=== PATIENT | female | born 1985 | race Caucasian/White ===

== ENCOUNTER → 2020-04-28 | Outpatient (CLI) | payer BC ==
[2020-04-28 09:55] VITALS: BP 130/89; PULSE 95; RESP 18; TEMP 98.3
--- NOTE | 2020-04-28 11:03 | P.HPOB ---
History of Present Illness H&P Date: 04/28/20 Chief Complaint: The patient is here for her routine gynecologic exam. This is a 35-year-old with an LMP of 04/18/2020. She is here to establish with this office. It has been about 3 years since her last pelvic exam. She has used withdrawal for control. She states she noticed a dark area just inside of the vaginal opening last week. It is in the midline at the posterior aspect of the outer vagina. She denies any pain or discomfort with sexual intercourse. She would like to have this checked out and states she does not have any pain or discomfort related to this. She is otherwise without complaints. She has completed her childbearing and would like her to get a vasectomy. Review of Systems The patient has gained 10 pounds over the last year. She attributes this to decreased activity during the Covid pandemic. She denies respiratory, cardiac, or G.I. problems. 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 History of Any Multi-Drug Resistant Organisms: None Reported Past Surgical History: No Surgical Hx Reported Past Psychological History: No Psychological Hx Reported Smoking Status: Never smoker Past Alcohol Use History: None Reported Past Drug Use History: None Reported Additional History: She has been since 2003. She is currently not work ing outside of the home. - Past Family History Father Family Medical History: No Reported History Mother Family Medical History: No Reported History Medications and Allergies Home Medications Medication Instructions Recorded Confirmed Type No Known Home Medications 05/26/14 04/28/20 History Allergies Allergy/AdvReac Type Severity Reaction Status Date / Time No Known Allergies Allergy Verified 04/28/20 09:52 Exam Vital Signs Temp Pulse Resp BP Pulse Ox 04/28/20 09:53 98.3 F 95 18 130/89 96 Intake and Output 04/27/20 04/28/20 04/28/20 22:59 06:59 14:59 Other: Weight 61.235 kg Height 5 feet 4 inches, weight 135 pounds, BMI 23.2. This is a well-developed well-nourished white female who is alert and oriented times 3 in no acute distress. HEENT: Within normal limits. NECK: Supple without mass or thyromegaly. CHEST AND LUNGS: Clear to auscultation. HEART: Regular rate and rhythm. BREASTS: Are without mass or discharge. AXILLARY EXAM: Negative for adenopathy. BACK: Negative for CVA tenderness. ABDOMEN: Soft, nontender, without palpable masses. PELVIC EXAM: Normal external genitalia. Cervix appears normal. There is a pigmented area at the posterior aspect of the vagina near the introitus that is irregular in shape measuring approximately 1 x 1 cm. The lesion is flat and nontender. There are no other vaginal lesions noted. There is no unusual discharge. There is no evidence of prolapse. The uterus is midposition, nongravid size and nontender. There are no palpable adnexal masses or tenderness. RECTAL EXAM: negative for mass or tenderness. EXTREMITIES: Nontender. IMPRESSION: 1. 35-year-old female using withdrawal for control with a pigmented vaginal lesion at the posterior outer vagina near the introitus. The lesion is irregular in shape and measures approximately 1 x 1 cm. The patient noticed this last week and was an incidental finding. She is uncertain as to how long it has been there. 2. The patient has been using withdrawal for control. She would like her to get a vasectomy. PLAN: 1. Pap smear was performed. 2. Self breast awareness was discussed with the patient. 3. I have recommended biopsy of the vaginal lesion and we will schedule her for this procedure. She understands that this will be done to rule out malignant or premalignant lesions. She understands that complete excision may be necessary inserted situations. 4. She has the number for [facility] and will look into having her get a vasectomy. 5. After the vaginal lesion biopsy, she will return in one year or as needed.
== END | disposition home or self-care (01) ==
LOC: WWCWWP 09:34
PROVIDERS: ATTEND Obstetrics & Gynecology
DX: Z53.9 Procedure and treatment not carried out, unspecified reason (principal)

== ENCOUNTER → 2020-05-06 | Day surgery (SDC) | payer BC ==
[2020-05-06 12:06] VITALS: BP 132/82; PULSE 95; RESP 18; TEMP 98.8
--- NOTE | 2020-05-06 13:13 | P.PCN ---
Date of Procedure: 05/06/20 Preoperative Diagnosis: Pigmented vaginal lesion Postoperative Diagnosis: Same Procedure(s) Performed: Vaginal lesion biopsy Anesthesia: local Surgeon: David Stewart Estimated Blood Loss (ml): 0 Pathology: other (Vaginal lesion biopsy) Condition: stable Disposition: same day Indications for Procedure: This was a 35-year-old female who was found to have a pigmented vaginal lesion in the posterior outer vagina. Because of the uncertain nature of the lesion, the lesion was biopsied. Operative Findings: The vaginal lesion was in the outer third of the vagina in the midline at the posterior aspect of the vagina. The lesion measured approximately 1 x 1 cm and was irregularly shaped. The lesion is flat and nontender. Description of Procedure: The procedure was described to the patient and we have discussed possible risks including bleeding and infection. All of her questions were answered. The patient was placed in the lithotomy position and the area was prepped with Betadine solution. Approximately 1.5 mL of 1% lidocaine was used for local anesthesia. Following determination of adequate anesthesia, a large cervical biopsy instrument was used to biopsy the pigmented mucosa. The majority of the 1 x 1 cm lesion was removed and sent for pathological examination. There was minimal bleeding at the site and this was made hemostatic with a silver nitrate stick. A small amount of antibiotic ointment was applied to the surface of the site and a piece of gauze was placed between the external labia. The patient tolerated the procedure well. Preprocedure vital signs were: Blood pressure 132/82, height 64 inches, weight 135 pounds, temperature 98.8, pulse 95 and pulse oximeter 96%. Postprocedure blood pressure was 128/92, pulse 90 and pulse oximeter 97%. The patient was instructed to call if she is having unusual pain, heavier bleeding, fever or problems. The patient was asked to avoid running and all sexual activity for 7 days. She was instructed not to insert anything into the vagina. She was discharged home in stable condition.
--- NOTE | 2020-05-12 12:27 | P.PN ---
Progress Note - Text Progress Note Date: 05/12/20 OUTPATIENT FOLLOW-UP NOTE TEST(S)/RESULTS: Vaginal biopsy from 05/06/20 was benign showing post inflammatory pigment incontinence. Also Pap smear done on 04/28/2020 showed ASCUS with negative high-risk HPV testing. METHOD OF NOTIFICATION: She was notified by phone PATIENT COMMENTS: She denies any problems after the biopsy. DIAGNOSIS: ASCUS Pap smear with negative high-risk HPV testing and benign vaginal biopsy. DISCUSSION: We had a long discussion regarding the abnormal Pap smear which showed ASCUS and negative high-risk HPV testing. She understands no further testing is necessary at this time. We will plan on repeating both the cytology Pap smear and HPV testing in 2-3 years. She will still return for her annual well woman exam in 1 year. PLAN: As above
== END ==
LOC: WWCWWP 11:47
PROVIDERS: ATTEND Obstetrics & Gynecology
DX: N89.8 Other specified noninflammatory disorders of vagina (principal)
CPT/HCPCS: 88305

== ENCOUNTER 2021-08-08 18:21 | Observation (INO) | payer BC ==
[2021-08-08] MEDS ORDERED: SODIUM CHLORIDE 0.9% 1,000 ML IV STA (18:41)
[2021-08-08] MEDS ORDERED: ONDANSETRON 4 MG/2 ML VIAL IVP STA (18:41)
[2021-08-08] MEDS ORDERED: diphenhydrAMINE 50 MG/ML 1 ML VIAL IVP STA (18:41)
[2021-08-08] MEDS ORDERED: FAMOTIDINE 20 MG/2 ML VIAL IV STA (18:42)
--- NOTE | 2021-08-08 19:33 | ED ---
General Adult HPI - General Chief complaint: Nausea/Vomiting/Diarrhea Stated complaint: fever, vomiting, body aches Time Seen by Provider: 08/08/21 18:36 Source: patient, RN notes reviewed, old records reviewed Mode of arrival: wheelchair Limitations: no limitations - History of Present Illness Initial comments: Patient is a 36-year-old female who took a home Covid 19 test last Monday and it was found to be positive. Last week she has been having nausea, vomiting, intermittent abdominal discomfort. She denies any diarrhea. Does endorse by mouth intake, however states it is somewhat reduced due to possible appetite. Denies shortness of breath but does endorse a mild cough. Has no medical problems. Patient is not obese and BMI is normal. She denies any fevers or chills. She states she has generalized joint pain and feels "miserable". She is concerned as she does not feel any better and would like to be evaluated. Patient was not vaccinated for COVID-19. - Related Data Home Medications Medication Instructions Recorded Confirmed No Known Home Medications 05/26/14 08/08/21 Allergies Allergy/AdvReac Type Severity Reaction Status Date / Time No Known Allergies Allergy Verified 08/08/21 19:30 Review of Systems ROS Statement: Those systems with pertinent positive or pertinent negative responses have been documented in the HPI. Review of Systems: CONST: Denies fever EYES: Denies blurry vision ENT: Endorses nasal congestion C/V: Denies Chest pain RESP: Denies shortness of breath GI: Endorses nonspecific abdominal discomfort : Denies dysuria SKIN: Denies rash. MSK: Endorses generalized joint pain NEURO: Denies headache ROS Other: All systems not noted in ROS Statement are negative. 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 History of Any Multi-Drug Resistant Organisms: None Reported Past Surgical History: No Surgical Hx Reported Past Psychological History: No Psychological Hx Reported Smoking Status: Never smoker Past Alcohol Use History: None Reported Past Drug Use History: None Reported - Past Family History Father Family Medical History: No Reported History Mother Family Medical History: No Reported History General Exam - General Exam Comments Initial Comments: General: Appears ill but nontoxic and in no acute distress. HEAD: Normal with no signs of head trauma. EYES: PERRLA, EOMI, conjunctiva normal, no discharge. ENT: Hearing grossly intact, normal oropharynx. Mucous membranes appear mildly dry. RESPIRATORY: Clear breath sounds bilaterally. No wheezes, rales, or rhonchi. No increased work of breathing. No hypoxia. C/V: Regular rate and rhythm. S1 and S2 auscultated, no edema, peripheral pulses 2+ and intact throughout ABD: Abd is soft, nontender, nondistended. No guarding. No peritoneal signs. No rebound tenderness. EXT: Normal range of motion, no obvious deformity SKIN: No rashes or lesions observed on exposed skin. NEURO: Alert and oriented 4. Limitations: no limitations Course Vital Signs 08/08/21 08/08/21 18:28 21:14 Temperature 98.6 F 97.8 F Pulse Rate 107 H 89 Respiratory 18 20 Rate Blood Pressure 96/65 92/53 O2 Sat by Pulse 97 97 Oximetry Medical Decision Making - Medical Decision Making Based on the patient's presentation and physical exam, I'm concerned for dehyd ration in the setting of acute COVID-19 infection. We will obtain basic laboratory studies as well as retest for COVID-19. She does not meet criteria for monoclonal antibody therapy. I did discuss this with her, and she has no medical issues, has a normal BMI, and is middle-aged an otherwise healthy. She expressed understanding. We will administer IV Zofran, Benadryl, Pepcid as well as 1 L fluid bolus. She was in agreement with this plan.Patient otherwise appears within normal limits and is not in any form of respiratory distress. Patient's chest x-ray reveals bilateral interstitial patchy pneumonia likely secondary to her COVID-19 positivity. COVID-19 test is positive. Basic labora tory studies were remarkable for mild hyponatremia and hypochloremia of 130 and 93 respectively. Patient has an AK I with an elevated BUNs of 34 and creatinine of 1.8. Patient is a mildly elevated AST and ALT of 167 and 76 respectively. Remainder the laboratory studies are unremarkable. Urinalysis maybe contaminated, which is no obvious signs of infection at this time. Accepted the patient due to her SHARMIN as well as dehydration like to admit her for IV fluids. She does not meet criteria for monoclonal antibody treatment for COVID-19 infection. She was in agreement with this plan. She'll be started on maintenance fluids. I spoke with the admitting team under Dr. Hart who accepted the patient. Consult will be placed to infectious disease Dr. Chen to be evaluated in the morning, in the event that he can offer the patient additional COVID-19 therapies. Patient was in agreement this plan. Patient was therefore admitted to observation for her acute kidney injury and dehydration likely secondary to her COVID-19 infection. - Lab Data Result diagrams: 08/08/21 19:56 08/08/21 19:56 Lab Results 08/08/21 08/08/21 08/08/21 Range/Units 18:34 19:56 19:56 WBC 6.0 (3.8-10.6) k/uL RBC 4.84 (3.80-5.40) m/uL Hgb 13.6 (11.4-16.0) gm/dL Hct 39.5 (34.0-46.0) % MCV 81.6 (80.0-100.0) fL MCH 28.2 (25.0-35.0) pg MCHC 34.5 (31.0-37.0) g/dL RDW 13.6 (11.5-15.5) % Plt Count 140 L (150-450) k/uL MPV 9.5 Neutrophils % 87 % Lymphocytes % 8 % Monocytes % 3 % Eosinophils % 0 % Basophils % 0 % Neutrophils # 5.3 (1.3-7.7) k/uL Lymphocytes # 0.5 L (1.0-4.8) k/uL Monocytes # 0.2 (0-1.0) k/uL Eosinophils # 0.0 (0-0.7) k/uL Basophils # 0.0 (0-0.2) k/uL Sodium (137-145) mmol/L Potassium (3.5-5.1) mmol/L Chloride (98-107) mmol/L Carbon Dioxide (22-30) mmol/L Anion Gap mmol/L BUN (7-17) mg/dL Creatinine (0.52-1.04) mg/dL Est GFR (CKD-EPI)AfAm (>60 ml/min/1.73 sqM) Est GFR (CKD-EPI)NonAf (>60 ml/min/1.73 sqM) Glucose (74-99) mg/dL Calcium (8.4-10.2) mg/dL Total Bilirubin (0.2-1.3) mg/dL AST (14-36) U/L ALT (4-34) U/L Alkaline Phosphatase (38-126) U/L Total Protein (6.3-8.2) g/dL Albumin (3.5-5.0) g/dL Amylase (30-110) U/L Lipase (23-300) U/L Urine Color Yellow Urine Appearance Cloudy H (Clear) Urine pH 5.5 (5.0-8.0) Ur Specific [place] 1.015 (1.001-1.035) Urine Protein 1+ H (Negative) Urine Glucose (UA) Negative (Negative) Urine Ketones Negative (Negative) Urine Blood Large H (Negative) Urine Nitrite Negative (Negative) Urine Bilirubin Negative (Negative) Urine Urobilinogen <2.0 (<2.0) mg/dL Ur Leukocyte Esterase Negative (Negative) Urine RBC 34 H (0-5) /hpf Urine WBC 83 H (0-5) /hpf Urine WBC Clumps Moderate H (None) /hpf Ur Squamous Epith Cells 4 (0-4) /hpf Amorphous Sediment Moderate H (None) /hpf Urine Bacteria Few H (None) /hpf Hyaline Casts 117 H (0-2) /lpf Urine Mucus Rare H (None) /hpf Coronavirus (PCR) Detected A (Not Detectd) 08/08/21 Range/Units 19:56 WBC (3.8-10.6) k/uL RBC (3.80-5.40) m/uL Hgb (11.4-16.0) gm/dL Hct (34.0-46.0) % MCV (80.0-100.0) fL MCH (25.0-35.0) pg MCHC (31.0-37.0) g/dL RDW (11.5-15.5) % Plt Count (150-450) k/uL MPV Neutrophils % % Lymphocytes % % Monocytes % % Eosinophils % % Basophils % % Neutrophils # (1.3-7.7) k/uL Lymphocytes # (1.0-4.8) k/uL Monocytes # (0-1.0) k/uL Eosinophils # (0-0.7) k/uL Basophils # (0-0.2) k/uL Sodium 132 L (137-145) mmol/L Potassium 3.6 (3.5-5.1) mmol/L Chloride 93 L (98-107) mmol/L Carbon Dioxide 25 (22-30) mmol/L Anion Gap 14 mmol/L BUN 34 H (7-17) mg/dL Creatinine 1.80 H (0.52-1.04) mg/dL Est GFR (CKD-EPI)AfAm 41 (>60 ml/min/1.73 sqM) Est GFR (CKD-EPI)NonAf 35 (>60 ml/min/1.73 sqM) Glucose 101 H (74-99) mg/dL Calcium 8.5 (8.4-10.2) mg/dL Total Bilirubin 0.5 (0.2-1.3) mg/dL AST 167 H (14-36) U/L ALT 76 H (4-34) U/L Alkaline Phosphatase 73 (38-126) U/L Total Protein 6.8 (6.3-8.2) g/dL Albumin 3.4 L (3.5-5.0) g/dL Amylase 77 (30-110) U/L Lipase 196 (23-300) U/L Urine Color Urine Appearance (Clear) Urine pH (5.0-8.0) Ur Specific [place] (1.001-1.035) Urine Protein (Negative) Urine Glucose (UA) (Negative) Urine Ketones (Negative) Urine Blood (Negative) Urine Nitrite (Negative) Urine Bilirubin (Negative) Urine Urobilinogen (<2.0) mg/dL Ur Leukocyte Esterase (Negative) Urine RBC (0-5) /hpf Urine WBC (0-5) /hpf Urine WBC Clumps (None) /hpf Ur Squamous Epith Cells (0-4) /hpf Amorphous Sediment (None) /hpf Urine Bacteria (None) /hpf Hyaline Casts (0-2) /lpf Urine Mucus (None) /hpf Coronavirus (PCR) (Not Detectd) Disposition Clinical Impression: SHARMIN (acute kidney injury), Dehydration, COVID-19 virus infection Disposition: ADMITTED IP TO THIS [facility] Condition: Serious
--- NOTE | 2021-08-08 19:53 | XR ---
EXAMINATION TYPE: XR chest 1V portable DATE OF EXAM: 08/08/2021 COMPARISON: 05/26/2014 HISTORY: Vomiting TECHNIQUE: Single view FINDINGS: There is some patchy interstitial infiltrates in both lungs. Heart size is normal. There ar e no hilar masses. Costophrenic angles are clear. Bony thorax is intact. IMPRESSION: Interstitial patchy pneumonia. Normal heart. Abnormality appears new compared to old exam .
[2021-08-08] MEDS: SODIUM CHLORIDE 0.9% 1,000 ML IV ONE ×2 (20:16→21:11)
[2021-08-08 20:23] LABS: Basophils % (A) 0 %; Eosinophils % (A) 0 %; HCT 39.5 % (34.0-46.0); HGB 13.6 gm/dL (11.4-16.0); Lymphocytes # (A) 0.5 k/uL (1.0-4.8); Lymphocytes % (A) 8 %; MCH 28.2 pg (25.0-35.0); MCHC 34.5 g/dL (31.0-37.0); MCV 81.6 fL (80.0-100.0); Mean Platelet Volume 9.5; Monocytes # (A) 0.2 k/uL (0-1.0); Monocytes % (A) 3 %; Neutrophils # (A) 5.3 k/uL (1.3-7.7); Neutrophils % (A) 87 %; Platelet Count 140 k/uL (150-450); RBC 4.84 m/uL (3.80-5.40); RDW 13.6 % (11.5-15.5)
[2021-08-08 20:35] LABS: ALT 76 U/L (4-34); AST 167 U/L (14-36); African American GFR (CKD) 41 (>60 ml/min/1.73 sqM); Albumin 3.4 g/dL (3.5-5.0); Alkaline Phosphatase 73 U/L (38-126); Amylase 77 U/L (30-110); Anion Gap 14 mmol/L; Blood Urea Nitrogen 34 mg/dL (7-17); Calcium 8.5 mg/dL (8.4-10.2); Carbon Dioxide 25 mmol/L (22-30); Chloride 93 mmol/L (98-107); Glucose 101 mg/dL (74-99); Lipase 196 U/L (23-300); Non-African American GFR(CKD) 35 (>60 ml/min/1.73 sqM); Sodium 132 mmol/L (137-145); Total Bilirubin 0.5 mg/dL (0.2-1.3); Total Protein 6.8 g/dL (6.3-8.2)
[2021-08-08 20:37] LABS: Potassium 3.6 mmol/L (3.5-5.1)
[2021-08-08 20:53] LABS: Amorphous Sediment,Urine Moderate /hpf; Appearance,Urine Cloudy (Clear); Bacteria,Urine Few /hpf; Bilirubin,Urine Negative (Negative); Blood,Urine Large (Negative); Color,Urine Yellow; Glucose,Urine (UA) Negative (Negative); Hyaline Casts,Urine 117 /lpf (0-2); Ketones,Urine Negative (Negative); Leukocyte Esterase,Urine Negative (Negative); Mucus,Urine Rare /hpf; Nitrite,Urine Negative (Negative); PH, Urine 5.5 (5.0-8.0); Protein,Urine 1+ (Negative); RBC,Urine 34 /hpf (0-5); Specific Gravity,Urine 1.015 (1.001-1.035); Squamous Epithelial Cell,Urine 4 /hpf (0-4); Urobilinogen,Urine <2.0 mg/dL (<2.0); WBC,Urine 83 /hpf (0-5)
[2021-08-08] MEDS ORDERED: ACETAMINOPHEN TAB 325 MG TAB PO PRN (20:58)
[2021-08-08] MEDS: SODIUM CHLORIDE 0.9% 1,000 ML IV SCH (21:12)
[2021-08-08 22:11] LABS: HCG,Qualitative Serum Not Detected
[2021-08-08] MEDS: ONDANSETRON 4 MG/2 ML VIAL IVP PRN (23:45)
[2021-08-09 05:20] LABS: Basophils % (A) 0 %; Eosinophils % (A) 0 %; HCT 35.8 % (34.0-46.0); HGB 12.3 gm/dL (11.4-16.0); Lymphocytes # (A) 0.5 k/uL (1.0-4.8); Lymphocytes % (A) 9 %; MCH 28.3 pg (25.0-35.0); MCHC 34.5 g/dL (31.0-37.0); MCV 82.2 fL (80.0-100.0); Mean Platelet Volume 9.6; Monocytes # (A) 0.2 k/uL (0-1.0); Monocytes % (A) 3 %; Neutrophils # (A) 4.7 k/uL (1.3-7.7); Neutrophils % (A) 86 %; Platelet Count 135 k/uL (150-450); RBC 4.35 m/uL (3.80-5.40); RDW 13.1 % (11.5-15.5); WBC 5.4 k/uL (3.8-10.6)
[2021-08-09 05:36] LABS: Calcium 8.4 mg/dL (8.4-10.2); Potassium 3.5 mmol/L (3.5-5.1)
[2021-08-09] MEDS: SODIUM CHLORIDE 0.9% 1,000 ML IV SCH (08:33)
[2021-08-09 08:43] VITALS: RESP 16
[2021-08-09] MEDS: ASCORBIC ACID 500 MG TAB PO SCH (11:40)
[2021-08-09] MEDS: ZINC SULFATE 220 MG CAP PO SCH (11:41)
[2021-08-09] MEDS: ENOXAPARIN 40 MG/0.4 ML SYRINGE SQ SCH (11:41)
--- NOTE | 2021-08-09 16:02 | P.HPIM ---
History of Present Illness Patient is a 36-year-old the pleasant female came in with complaints of shortness of breath nausea symptoms has been going on/Monday. Patient was also having nausea vomiting intermittent mild abdominal discomfort denied any diarrhea decreased to by mouth intake. Patient denied any dysuria patient doesn't have any fevers. Patient has been abnormality. Patient is positive for Covid 19. Chest x-ray is consistent with Covid 19 pneumonia. Patient does have elevated creatinine going up to date which improved with IV hydration to 1.14. Infectious diseases evaluated the patient they believe patient has urinary tract infection although patient doesn't have any symptoms. Patient is still does lethargic because of which will monitor her overnight and keep her on IV fluids possibly of discharge tomorrow REVIEW OF SYSTEMS: CONSTITUTIONAL: Mentioned in HPI HEENT: No recent visual problems or hearing problems. Denied any sore throat. CARDIOVASCULAR: No chest pain, orthopnea, PND, no palpitations, no syncope. PULMONARY:no cough, no hemoptysis. GASTROINTESTINAL: As mentioned in HPI NEUROLOGICAL: No headaches, no weakness, no numbness. HEMATOLOGICAL: Denies any bleeding or petechiae. GENITOURINARY: Denies any burning micturition, frequency, or urgency. MUSCULOSKELETAL/RHEUMATOLOGICAL: Denies any joint pain, swelling, or any muscle pain. ENDOCRINE: Denies any polyuria or polydipsia. The rest of the 14-point review of systems is negative. PHYSICAL EXAMINATION: GENERAL: The patient is alert and oriented x3, not in any acute distress. Well developed, well nourished. HEENT: Pupils are round and equally reacting to light. EOMI. No scleral icterus. No conjunctival pallor. Normocephalic, atraumatic. No pharyngeal erythema. No thyromegaly. CARDIOVASCULAR: S1 and S2 present. No murmurs, rubs, or gallops. PULMONARY: Chest is clear to auscultation, no wheezing or crackles. ABDOMEN: Soft, nontender, nondistended, normoactive bowel sounds. No palpable organomegaly. MUSCULOSKELETAL: No joint swelling or deformity. EXTREMITIES: No cyanosis, clubbing, or pedal edema. NEUROLOGICAL: Gross neurological examination did not reveal any focal deficits. SKIN: No rashes. Assessment and plan -Nausea vomiting, lethargic: Secondary to Covid 19 infection. Patient is not requiring any oxygen at this time supportive care with IV fluids and echo with vitamins will not require any steroids at this time. -Covid 19 pneumonia -Hypovolemic hyponatremia improved with IV fluids - acute renal failure prerenal azotemia secondary to dehydration intravascular volume depletion from nausea vomiting for which patient is receiving IV fluids - possibility of urinary tract infection for which patient is on Rocephin DVT prophylaxis: Lovenox Past Medical History Past Medical History: No Reported History Additional Past Medical History / Comment(s): Gestational diabetes. History of Any Multi-Drug Resistant Organisms: None Reported Past Surgical History: No Surgical Hx Reported Past Anesthesia/Blood Transfusion Reactions: Unable to Obtain Additional Past Anesthesia/Blood Transfusion Reaction / Comment(s): Pt has never had surgery Smoking Status: Never smoker - Past Family History Father Family Medical History: No Reported History Mother Family Medical History: No Reported History Medications and Allergies Home Medications Medication Instructions Recorded Confirmed Type Cefuroxime Axetil [Ceftin] 500 mg PO BID 5 Days #10 tab 08/09/21 Rx Cholecalciferol [Vitamin D3 (25 25 mcg PO DAILY #30 tab 08/09/21 Rx Mcg = 1000 Iu)] Zinc Sulfate 220 mg PO DAILY #20 capsule 08/09/21 Rx Allergies Allergy/AdvReac Type Severity Reaction Status Date / Time No Known Allergies Allergy Verified 08/08/21 19:30 Physical Exam Vitals: Vital Signs Temp Pulse Pulse Resp BP BP Pulse Ox 08/09/21 08:30 98.0 F 91 16 106/70 97 08/09/21 08:00 98.8 F 91 18 98/56 98 08/09/21 02:00 98.8 F 88 18 128/76 95 08/08/21 23:52 98.8 F 95 18 108/61 96 08/08/21 22:34 98.4 F 90 20 149/99 98 08/08/21 21:14 97.8 F 89 20 92/53 97 08/08/21 18:28 98.6 F 107 H 18 96/65 97 Intake and Output 08/09/21 08/09/21 08/09/21 06:59 14:59 22:59 Other: # Voids 1 Weight 58.967 kg Results CBC & Chem 7: 08/09/21 04:54 08/09/21 04:54 Labs: Abnormal Lab Results - Last 24 Hours (Table) 08/08/21 08/08/21 08/08/21 Range/Units 18:34 19:56 19:56 Plt Count 140 L (150-450) k/uL Lymphocytes # 0.5 L (1.0-4.8) k/uL Sodium (137-145) mmol/L Chloride (98-107) mmol/L BUN (7-17) mg/dL Creatinine (0.52-1.04) mg/dL Glucose (74-99) mg/dL AST (14-36) U/L ALT (4-34) U/L Albumin (3.5-5.0) g/dL Urine Appearance Cloudy H (Clear) Urine Protein 1+ H (Negative) Urine Blood Large H (Negative) Urine RBC 34 H (0-5) /hpf Urine WBC 83 H (0-5) /hpf Urine WBC Clumps Moderate H (None) /hpf Amorphous Sediment Moderate H (None) /hpf Urine Bacteria Few H (None) /hpf Hyaline Casts 117 H (0-2) /lpf Urine Mucus Rare H (None) /hpf Coronavirus (PCR) Detected A (Not Detectd) 08/08/21 08/09/21 08/09/21 Range/Units 19:56 04:54 04:54 Plt Count 135 L (150-450) k/uL Lymphocytes # 0.5 L (1.0-4.8) k/uL Sodium 132 L (137-145) mmol/L Chloride 93 L (98-107) mmol/L BUN 34 H 21 H (7-17) mg/dL Creatinine 1.80 H 1.14 H (0.52-1.04) mg/dL Glucose 101 H (74-99) mg/dL AST 167 H (14-36) U/L ALT 76 H (4-34) U/L Albumin 3.4 L (3.5-5.0) g/dL Urine Appearance (Clear) Urine Protein (Negative) Urine Blood (Negative) Urine RBC (0-5) /hpf Urine WBC (0-5) /hpf Urine WBC Clumps (None) /hpf Amorphous Sediment (None) /hpf Urine Bacteria (None) /hpf Hyaline Casts (0-2) /lpf Urine Mucus (None) /hpf Coronavirus (PCR) (Not Detectd) Microbiology - Last 24 Hours (Table) 08/08/21 19:56 Urine Culture - Preliminary Urine,Voided Thrombosis Risk Factor Assmnt - Choose All That Apply Any of the Below Risk Factors Present?: Yes Each Factor Represents 1 point: Serious lung disease incl. pneumonia (< 1month) Other Risk Factors: No Other congenital or acquired thrombophilia - If yes, enter type in comment: No Thrombosis Risk Factor Assessment Total Risk Factor Score: 1 Thrombosis Risk Factor Assessment Level: Low Risk
[2021-08-10] MEDS: SODIUM CHLORIDE 0.9% 1,000 ML IV SCH ×3 (01:10→14:03)
[2021-08-10 08:36] VITALS: BP 99/63; PULSE 82; TEMP 98.6
--- NOTE | 2021-08-10 08:45 | P.CONS ---
History of Present Illness - Reason for Consult Consult date: 08/09/21 covid 19 Requesting physician: Sigifredo Hart - Chief Complaint nausea and vomiting x few days - History of Present Illness History of present illness : Patient is 36-year-old female presenting to the ER last evening for evaluation of nausea vomiting intermittent abdominal discomfort no diarrhea though patient did have decreased oral intake and decreased appetite patient also have a mild cough not bringing up any sputum at this patient parent did have home Covid test last Monday which was positive patient symptom has been going on for about a week with the symptom the patient presented to hospital on arrival to the ER patient has been afebrile patient is not hypoxic or need for supplemental oxygen therapy patient did have a normal white count with lymphopenia BUN/creatinine has been mildly elevated but did have positive UA Covid test was positive as well patient did have a chest x-ray interstitial patchy pneumonia normal heart patient was admitted to hospital infectious disease was consulted for further management Review of system: CONSTITUTIONAL: Positive for weakness along with the fever. EYES: No complaint. ENT: No complaint. RESPIRATORY: As per history of present illness. CARDIOVASCULAR: No complaint. GENITOURINARY: As per history of present illness GASTROINTESTINAL: As per history of present illness MUSCULOSKELETAL: No complaint. INTEGUMENTARY: No complaint. PSYCHOLOGIC: No complaint. ENDOCRINE: No complaint. NEUROLOGIC: No complaint. Past medical history : Reviewed, documented below Past surgical history : Reviewed, documented below Social history: Reviewed, documented below Medications: Reviewed, as documented below EXAMINATION: Vital sigans= Reviewed and documented below GENERAL DESCRIPTION: Middle-aged female lying in bed, no distress. No tachypnea or accessory muscle of respiration use. HEENT: Shows Pallor , no scleral icterus. Oral mucous membrane is dry. NECK: Trachea central, no thyromegaly. LUNGS: Unlabored breathing. Clear to auscultation anteriorly. No wheeze or crackle. HEART: S1, S2, regular rate and rhythm. ABDOMEN: Soft, no tenderness , guarding or rigidity EXTREMITIES: No edema of feet. SKIN: No rash, no masses palpable. NEUROLOGICAL: The patient is awake, alert, oriented x3, mood and affect normal. LABS AND RADIOLOGY: Reviewed results see below Assessment :1- Patient presented to hospital with weakness decreased appetite patient complaining of abdominal discomfort nausea and vomiting patient did have a positive UA could be more likely related to pyelonephritis patient did not have a diarrhea which is seen more commonly with the COVID-19 infection 2-patient with a positive Covid test symptom has been going on for about a week patient not hypoxic minimal infiltrate on the chest x-ray likely mild COVID-19 infection Plan: 1-we will add Rocephin 1 g daily 2-patient will be advise Lovenox zinc and ascorbic acid 3-gentle IV fluid and symptomatic treatment of her nausea We will follow on clinical condition and cultures to further adjust medication if needed Thank you for this consultation we will follow the patient along with you Past Medical History Past Medical History: No Reported History Additional Past Medical History / Comment(s): Gestational diabetes. History of Any Multi-Drug Resistant Organisms: None Reported Past Surgical History: No Surgical Hx Reported Past Anesthesia/Blood Transfusion Reactions: Unable to Obtain Additional Past Anesthesia/Blood Transfusion Reaction / Comm: Pt has never had surgery Smoking Status: Never smoker - Past Family History Father Family Medical History: No Reported History Mother Family Medical History: No Reported History Medications and Allergies Home Medications Medication Instructions Recorded Confirmed Type Cefuroxime Axetil [Ceftin] 500 mg PO BID 5 Days #10 tab 08/09/21 Rx Cholecalciferol [Vitamin D3 (25 25 mcg PO DAILY #30 tab 08/09/21 Rx Mcg = 1000 Iu)] Zinc Sulfate 220 mg PO DAILY #20 capsule 08/09/21 Rx Allergies Allergy/AdvReac Type Severity Reaction Status Date / Time No Known Allergies Allergy Verified 08/08/21 19:30 Physical Exam Vitals: Vital Signs Temp Pulse Pulse Resp BP BP Pulse Ox 08/09/21 08:30 98.0 F 91 16 106/70 97 08/09/21 08:00 98.8 F 91 18 98/56 98 08/09/21 02:00 98.8 F 88 18 128/76 95 08/08/21 23:52 98.8 F 95 18 108/61 96 08/08/21 22:34 98.4 F 90 20 149/99 98 08/08/21 21:14 97.8 F 89 20 92/53 97 08/08/21 18:28 98.6 F 107 H 18 96/65 97 Intake and Output 08/08/21 08/09/21 08/09/21 22:59 06:59 14:59 Other: Weight 58.967 kg 58.967 kg Results CBC & Chem 7: 08/09/21 04:54 08/09/21 04:54 Labs: Abnormal Lab Results - Last 24 Hours (Table) 08/08/21 08/08/21 08/08/21 Range/Units 18:34 19:56 19:56 Plt Count 140 L (150-450) k/uL Lymphocytes # 0.5 L (1.0-4.8) k/uL Sodium (137-145) mmol/L Chloride (98-107) mmol/L BUN (7-17) mg/dL Creatinine (0.52-1.04) mg/dL Glucose (74-99) mg/dL AST (14-36) U/L ALT (4-34) U/L Albumin (3.5-5.0) g/dL Urine Appearance Cloudy H (Clear) Urine Protein 1+ H (Negative) Urine Blood Large H (Negative) Urine RBC 34 H (0-5) /hpf Urine WBC 83 H (0-5) /hpf Urine WBC Clumps Moderate H (None) /hpf Amorphous Sediment Moderate H (None) /hpf Urine Bacteria Few H (None) /hpf Hyaline Casts 117 H (0-2) /lpf Urine Mucus Rare H (None) /hpf Coronavirus (PCR) Detected A (Not Detectd) 08/08/21 08/09/21 08/09/21 Range/Units 19:56 04:54 04:54 Plt Count 135 L (150-450) k/uL Lymphocytes # 0.5 L (1.0-4.8) k/uL Sodium 132 L (137-145) mmol/L Chloride 93 L (98-107) mmol/L BUN 34 H 21 H (7-17) mg/dL Creatinine 1.80 H 1.14 H (0.52-1.04) mg/dL Glucose 101 H (74-99) mg/dL AST 167 H (14-36) U/L ALT 76 H (4-34) U/L Albumin 3.4 L (3.5-5.0) g/dL Urine Appearance (Clear) Urine Protein (Negative) Urine Blood (Negative) Urine RBC (0-5) /hpf Urine WBC (0-5) /hpf Urine WBC Clumps (None) /hpf Amorphous Sediment (None) /hpf Urine Bacteria (None) /hpf Hyaline Casts (0-2) /lpf Urine Mucus (None) /hpf Coronavirus (PCR) (Not Detectd) Microbiology - Last 24 Hours (Table) 08/08/21 19:56 Urine Culture - Preliminary Urine,Voided
[2021-08-10] MEDS: ENOXAPARIN 40 MG/0.4 ML SYRINGE SQ SCH (09:12)
[2021-08-10] MEDS: ONDANSETRON 4 MG/2 ML VIAL IVP PRN (09:12)
[2021-08-10] MEDS: ASCORBIC ACID 500 MG TAB PO SCH (09:13)
[2021-08-10] MEDS: ZINC SULFATE 220 MG CAP PO SCH (09:13)
[2021-08-10 09:52] LABS: Basophils % (A) 0 %; Eosinophils % (A) 0 %; HCT 35.1 % (34.0-46.0); HGB 11.9 gm/dL (11.4-16.0); Lymphocytes # (A) 0.7 k/uL (1.0-4.8); Lymphocytes % (A) 20 %; MCH 28.3 pg (25.0-35.0); MCHC 33.8 g/dL (31.0-37.0); MCV 83.7 fL (80.0-100.0); Mean Platelet Volume 8.5; Monocytes # (A) 0.1 k/uL (0-1.0); Monocytes % (A) 4 %; Neutrophils # (A) 2.5 k/uL (1.3-7.7); Neutrophils % (A) 74 %; Platelet Count 175 k/uL (150-450); RDW 13.8 % (11.5-15.5); WBC 3.4 k/uL (3.8-10.6)
[2021-08-10 10:02] LABS: African American GFR (CKD) >90 (>60 ml/min/1.73 sqM); Anion Gap 8 mmol/L; Blood Urea Nitrogen 11 mg/dL (7-17); Calcium 8.3 mg/dL (8.4-10.2); Carbon Dioxide 25 mmol/L (22-30); Chloride 102 mmol/L (98-107); Glucose 78 mg/dL (74-99); Non-African American GFR(CKD) >90 (>60 ml/min/1.73 sqM); Potassium 3.3 mmol/L (3.5-5.1); Sodium 135 mmol/L (137-145)
--- NOTE | 2021-08-10 11:14 | US ---
EXAMINATION TYPE: US kidneys/renal and bladder DATE OF EXAM: 08/10/2021 COMPARISON: NONE CLINICAL HISTORY: uti , elevated Cr. Covid EXAM MEASUREMENTS: Right Kidney: 11.3x5.8x4.4 cm Left Kidney: 10.4x4.8x4.1 cm Right Kidney: Trace amount of free fluid in the yip pouch Left Kidney: No hydronephrosis or masses seen Bladder: wnl Bilateral Jets seen: No There is no evidence for hydronephrosis at this point in time. No nephrolithiasis is seen. No rah s are identified. The urinary bladder is not greatly distended. Bilateral ureteral jets are not see n. IMPRESSION: No hydronephrosis seen bilaterally.
[2021-08-10] MEDS ORDERED: POTASSIUM CHLORIDE ER 20 MEQ TAB.ER PO STA (11:50)
[2021-08-10 13:18] VITALS: BMI 23.0
--- NOTE | 2021-08-10 13:34 | PN ---
PROGRESS NOTE DATE OF SERVICE: 08/10/2021 REASON FOR FOLLOWUP: Positive Covid test and possible UTI. INTERVAL COURSE: The patient is afebrile. The patient is breathing comfortably. Mentioned did have an episode of vomiting this morning. No abdominal pain. No diarrhea. No chest pain. No shortness of breath. Occasional cough which is dry in nature. Not bringing up any sputum. PHYSICAL EXAMINATION: Blood pressure 99/63 with a pulse of 82, temperature 98.6, 97% on room air. General description is a middle-aged female lying in bed in no distress. Respiratory system: Unlabored breathing, decreased intensity of breath sounds. No wheeze. Heart S1, S2. Regular rate and rhythm. Abdomen: Soft. No tenderness. No guarding. No rigidity. LABS: Hemoglobin is 11.1, white count 8.4, creatinine 0.75. DIAGNOSTIC IMPRESSION AND PLAN: 1. Patient with acute COVID-19 infection with mild symptoms. Patient not hypoxic Treatment is mostly supportive. 2. Patient with episodes of vomiting positive UA, possible pyelonephritis. Ultrasound was negative for any hydronephrosis and the patient's creatinine has normalized, more likely related to dehydration, to finish therapy with short course of oral Ceftin. 3. Continue supportive care. MMODL / IJN: [id number] / MTDTrish
--- NOTE | 2021-08-10 15:59 | P.DS ---
Providers Date of admission: 08/09/21 11:03 Attending physician: Wolfgang العراقي Consults: 08/08/21 20:59 Consult Physician Routine Consulting Provider: Jero Chen Consult Reason/Comments: COVID 19 positive, mostly GI symptoms, eval for additional treatments Do you want consulting provider notified?: Yes Primary care physician: Stated None Hospital Course: Final Diagnosis -Nausea vomiting, lethargic: Secondary to Covid 19 infection. Patient is not requiring any oxygen at this time. -Covid 19 pneumonia -Hypovolemic hyponatremia improved with IV fluids -Acute renal failure prerenal azotemia secondary to dehydration intravascular volume depletion from nausea vomiting -Possibility of urinary tract infection for which patient is on Rocephin, urine culture negative, finish short course of ceftin on DC Discharge Disposition Patient discharged home to rest, encourage slow increase in oral intake. Given IS on discharge. Hospital Course This is a 36-year-old female who presented to the hospital complaints of shortness of breath and nausea which has been ongoing since Monday. Patient Valium nausea, vomiting, intermittent mild abdominal discomfort. She denied any diarrhea and reports a decrease in oral intake. Patient does not have any fevers, chills or dysuria. Covid PCR was positive. Chest x-ray was consistent with COVID-19 pneumonia. Creatinine elevated on admission 1.80, she was treated with IV hydration and improved to 0.75. There has been no leukocytosis this admission. Patient evaluated by ID. Urinalysis was questionable for UTI on admission, urine is cloudy, 1+ protein, large blood, moderate WBC clumps, few bacteria, mucus. Urine culture was negative. Patient was treated with IV Rocephin and will finish a course of oral Ceftin on discharge. Patient also underwent abdominal bladder ultrasound which there was no evidence for hydronephrosis, no nephrolithiasis, no masses are identified, the urinary bladder is not greatly distended, bilateral ureteral jets are not seen. Vital signs patient remains afebrile, heart rate 82 sinus rhythm, blood pressure 109/72 which is 97% on room air. 08/10/2021 Patient evaluated today, she did have 1 episode of nausea with vomiting this morning. It subsided and she was able to tolerate oral intake. She is afebrile, vital signs stable, on room air. She is cleared medically for discharge today to go home and continue to rest and increase her oral intake as tolerated. Meds on discharge include Ceftin, Pepcid, vitamin D3, zinc, Zofran. She was not vaccinated. Lungs are clear, S1-S2 auscultated, there is no cough. Abdomen is soft nontender positive bowel sounds. Focal neurological exam is negative. Please see medication reconciliation for list of current medications. Thank you for allowing us to participate in the care of this patient. Patient Condition at Discharge: Fair Plan - Discharge Summary Discharge Rx Participant: No New Discharge Prescriptions: New Cefuroxime Axetil [Ceftin] 500 mg PO BID 5 Days #10 tab Famotidine [Pepcid] 20 mg PO BID #30 tablet Cholecalciferol [Vitamin D3 (25 Mcg = 1000 Iu)] 25 mcg PO DAILY #30 tab Zinc Sulfate 220 mg PO DAILY #20 capsule Discharge Medication List Cefuroxime Axetil [Ceftin] 500 mg PO BID 5 Days #10 tab 08/09/21 [Rx] Cholecalciferol [Vitamin D3 (25 Mcg = 1000 Iu)] 25 mcg PO DAILY #30 tab 08/09/21 [Rx] Zinc Sulfate 220 mg PO DAILY #20 capsule 08/09/21 [Rx] Famotidine [Pepcid] 20 mg PO BID #30 tablet 08/10/21 [Rx] Ondansetron Odt [Zofran Odt] 4 mg PO Q8HR PRN #10 tab 08/10/21 [Rx] Follow up Appointment(s)/Referral(s): Shira Walton MD [STAFF PHYSICIAN] - 1 Week Patient Instructions/Handouts: Coronavirus Disease 2019 (COVID-19) Activity/Diet/Wound Care/Special Instructions: Please go to [email or web address] to find a local primary care physician. increase activity as tolerated regular diet as tolerated Discharge Disposition: HOME SELF-CARE
== END 2021-08-10 14:50 | disposition home or self-care (01) ==
LOC: EC 18:21 → 6NMEDSUR 20:59 → OBSVTOIN 08-09 11:03 → INTOOBSV 08-09 11:03 → UNDODISIN 08-10 14:50
PROVIDERS: ADMIT Internal Medicine; ATTEND Internal Medicine
DX: U07.1 COVID-19 (principal); J12.82 Pneumonia due to coronavirus disease 2019; E87.1 Hypo-osmolality and hyponatremia; E86.1 Hypovolemia; E86.0 Dehydration; N17.9 Acute kidney failure, unspecified; E86.9 Volume depletion, unspecified; R74.01 Elevation of levels of liver transaminase levels; R79.89 Other specified abnormal findings of blood chemistry; D72.810 Lymphocytopenia; M25.50 Pain in unspecified joint; E87.8 Other disorders of electrolyte and fluid balance, not elsewhere classified; Z86.32 Personal history of gestational diabetes; Z71.9 Counseling, unspecified
CPT/HCPCS: 96376 ×2; 96361 ×4; 96365; 96366 ×2; 96372 ×2; 96375; 99285; 36415; 80053; 80048 ×2; 82150; 83690; 85025 ×3; 81001; 84703; 87086; 84145; 87635; 71045; 76770; G0378 ×3; J1200; J2405 ×2; J1650 ×2; J0696 ×2; 96374

== ENCOUNTER → 2021-12-15 | Outpatient (CLI) | payer BC ==
[2021-12-15 11:23] VITALS: BP 123/84; PULSE 85; RESP 17; TEMP 97.6
--- NOTE | 2021-12-15 12:35 | P.HPOB ---
History of Present Illness H&P Date: 12/15/21 Chief Complaint: The patient is here for her routine gynecologic exam. This is a 36-year-old with an LMP of 12/03/2021. The patient's is status post vasectomy. The patient is without gynecologic complaints. Menstrual periods are regular every month. The patient's last Pap smear on 04/28/2020 showed ASCUS with negative high-risk HPV testing. Review of Systems The patient's weight has been stable over the last year. She denies respiratory, cardiac, or G.I. problems. Past Medical History Past Medical History: No Reported History Additional Past Medical History / Comment(s): Gestational diabetes. 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 History of Any Multi-Drug Resistant Organisms: None Reported Past Surgical History: No Surgical Hx Reported Past Anesthesia/Blood Transfusion Reactions: Unable to Obtain Additional Past Anesthesia/Blood Transfusion Reaction / Comment(s): Pt has never had surgery Past Psychological History: No Psychological Hx Reported Additional Psychological History / Comment(s): Pt resides with her spouse and 3 children. She is independent. Smoking Status: Never smoker Past Alcohol Use History: None Reported Past Drug Use History: None Reported Additional History: She has been since 2003. She is currently not working outside of the home. - Past Family History Father Family Medical History: No Reported History Mother Family Medical History: No Reported History Medications and Allergies Home Medications Medication Instructions Recorded Confirmed Type Zinc Sulfate 220 mg PO DAILY #20 capsule 08/09/21 12/15/21 Rx Allergies Allergy/AdvReac Type Severity Reaction Status Date / Time No Known Allergies Allergy Verified 12/15/21 11:19 Exam Vital Signs Temp Pulse Resp BP Pulse Ox 12/15/21 11:21 97.6 F 85 17 123/84 97 Intake and Output 12/14/21 12/15/21 12/15/21 22:59 06:59 14:59 Other: Weight 61.689 kg Height 5 feet 3 inches, weight 136 pounds, BMI 24.1. This is a well-developed well-nourished white female who is alert and oriented times 3 in no acute distress. HEENT: Within normal limits. NECK: Supple without mass or thyromegaly. CHEST AND LUNGS: Clear to auscultation. HEART: Regular rate and rhythm. BREASTS: Are without mass or discharge. AXILLARY EXAM: Negative for adenopathy. BACK: Negative for CVA tenderness. ABDOMEN: Soft, nontender, without palpable masses. PELVIC EXAM: Normal external genitalia. Cervix and vagina appear normal. There is no unusual discharge. There is no evidence of prolapse. The uterus is anterior, nongravid size and nontender. There are no palpable adnexal masses or tenderness. RECTAL EXAM: Refused by the patient. EXTREMITIES: Nontender. IMPRESSION: 1. 36-year-old female with normal gynecologic exam. 2. Previous ASCUS Pap smear with negative high-risk HPV testing on 04/28/2020. PLAN: 1. Pap smear was deferred. Per the ASC management guidelines, Pap smear will be repeated approximately 3 years after her last cotest. 2. Self breast awareness was discussed with the patient. We have also discussed symptoms associated with inflammatory breast cancer. 3. Osteoporosis prevention was discussed. I have stressed the importance of adequate calcium, vitamin D and regular exercise. Recommended amounts of calcium and vitamin D were also discussed. 4. The patient states she previously had Covid last year. She has not received a Covid vaccination. She understands the CDC recommends vaccination. She will look into this. 5. We have discussed the availability of the HPV vaccination for her children. She will consider this. 6. She was advised to return in one year for her annual well woman exam.
== END ==
LOC: WWCWWP 11:06
PROVIDERS: ATTEND Obstetrics & Gynecology
DX: Z01.419 Encounter for gynecological examination (general) (routine) without abnormal findings (principal)